=== PATIENT | female | born 1960 | race Caucasian/White ===

== ENCOUNTER → 2018-10-20 | Outpatient (CLI) | payer BC ==
[2014-01-18 18:24] VITALS: BP 152/89
[~2018-10-20] MED LIST: SYNTHROID0.125 MG PO; VYVANSE20 MG PO
== END ==
LOC: RAD 15:27
DX: M16.0 Bilateral primary osteoarthritis of hip (principal)

== ENCOUNTER → 2021-03-03 | Outpatient (REF) ==
[2014-01-18 18:24] VITALS: BP 152/89
== END ==
LOC: LAB 07:05
DX: E89.0 Postprocedural hypothyroidism (principal)

== ENCOUNTER → 2021-09-22 | Outpatient (CLI) | payer BC | LOC: MAMMO 15:44 | DX: Z12.31 Encounter for screening mammogram for malignant neoplasm of breast (principal) ==

== ENCOUNTER → 2022-05-20 | Outpatient (REF) | LOC: LAB 06:44 | DX: Z00.00 Encounter for general adult medical examination without abnormal findings (principal) ==

== ENCOUNTER → 2023-01-07 | Outpatient (CLI) | payer OTHER | LOC: RAD 13:52 | DX: M43.22 Fusion of spine, cervical region (principal); M47.812 Spondylosis without myelopathy or radiculopathy, cervical region; M54.2 Cervicalgia ==

== ENCOUNTER → 2023-10-24 | Outpatient (CLI) | payer OTHER | LOC: MAMMO 07:01 | DX: N63.20 Unspecified lump in the left breast, unspecified quadrant (principal) ==

== ENCOUNTER → 2023-11-22 | Outpatient (CLI) | payer OTHER ==
[~2023-11-22] MED LIST changes: +Gadoterate 20 ML VIAL IV ONE
== END ==
LOC: RAD 09:18
DX: M50.121 Cervical disc disorder at C4-C5 level with radiculopathy (principal); R93.7 Abnormal findings on diagnostic imaging of other parts of musculoskeletal system; M43.22 Fusion of spine, cervical region
CPT/HCPCS: A9575